=== PATIENT | male | born 2000 | race Caucasian/White ===

== ENCOUNTER 2018-09-06 16:43 | Emergency (ER) | payer BC ==
[2018-09-06] MEDS ORDERED: EPINEPHrine 1 MG/ML INJ IM ONE (16:44)
[2018-09-06] MEDS ORDERED: NS 1,000 ML IV ONE (16:44)
[2018-09-06] MEDS ORDERED: RANITIDINE 50 MG/2 ML VIAL IVP ONE (16:44)
[2018-09-06] MEDS ORDERED: methylPREDNISolone SOD SUCC 125 MG/2 ML VIAL IVP ONE (16:44)
--- NOTE | 2018-09-06 17:14 | EDPHY ---
H & P Time Seen by Provider: 09/06/18 16:45 HPI/ROS: CHIEF COMPLAINT: Shortness of breath, itchy rash HISTORY OF PRESENT ILLNESS: 17-year-old male presents with shortness of breath. Onset of shortness of breath, lip swelling and increasing rash 2 hr ago. Associated with anxiety and tingling in his mouth and hands. Diagnosed with pityriasis rosea yesterday. Had a herald patch 1 week ago, followed by a diffuse rash. No prior history of allergic reaction and no new foods REVIEW OF SYSTEMS: complete 10 point ROS reviewed and is negative except for the noted elements in the HPI Source: Patient - Physical Exam Exam: General Appearance: Alert, pleasant, anxious Eyes: Pupils equal and round, no conjunctival pallor or injection ENT, Mouth: Mucous membranes moist, no oral swelling Neck: Normal inspection, no stridor Respiratory: Lungs are clear to auscultation, no wheezing Cardiovascular: Regular rate and rhythm Gastrointestinal: Abdomen is soft and nontender Neurological: A&O, nonfocal, normal gait Skin: Warm and dry, diffuse maculopapular rash Extremities: No swelling Psychiatric: Anxious Allergies/Adverse Reactions: No Known Allergies Allergy (Unverified 09/06/18 18:21) Home Medications: Medication Instructions Recorded EPINEPHrine [Epipen 0.3 MG] 0.3 mg IM ONCE #2 syr 09/06/18 Pepcid 09/06/18 Prednisone 09/06/18 predniSONE 40 mg PO DAILY #6 tab 09/06/18 Medical Decision Making ED Course/Re-evaluation: This patient presents with shortness of breath, lip swelling and diffuse rash. Physical exam is unremarkable except for the rash and associated anxiety. Concern for anaphylaxis. Possibly secondary to a panic attack however. Epinephrine IM, Solu-Medrol, Benadryl and ranitidine IV given. 6:15 p.m.: Feels much better, rash has subsided. No oral swelling. Lungs are clear to auscultation. Likely allergic reaction. Discharge instructions given. Differential Diagnosis: Differential diagnosis includes though it is not limited to laryngeal edema, bronchospasm, hypotension, angioedema. - Data Points Medications Given: Discontinued Medications Diphenhydramine HCl (Benadryl Injection) 25 mg IVP EDNOW ONE Stop: 09/06/18 16:45 Last Admin: 09/06/18 16:57 Dose: 25 mg Epinephrine HCl (Epinephrine) 0.3 mg IM EDNOW ONE Stop: 09/06/18 16:45 Last Admin: 09/06/18 16:54 Dose: 0.3 mg Sodium Chloride (Ns) 1,000 mls @ 0 mls/hr IV ONCE ONE; Wide Open PRN Reason: Protocol Stop: 09/06/18 16:45 Last Admin: 09/06/18 16:54 Dose: 1,000 mls Methylprednisolone Sodium Succinate (Solu-Medrol) 125 mg IVP EDNOW ONE Stop: 09/06/18 16:45 Last Admin: 09/06/18 16:56 Dose: 125 mg Ranitidine HCl (Zantac) 50 mg IVP EDNOW ONE Stop: 09/06/18 16:45 Last Admin: 09/06/18 16:59 Dose: 50 mg Departure - Departure Disposition: Home, Routine, Self-Care Clinical Impression: Allergic reaction Qualifiers: Encounter type: initial encounter Qualified Code(s): T78.40XA - Allergy, unspecified, initial encounter Condition: Good Instructions: Anaphylaxis (ED) Additional Instructions: Take Claritin in the morning and Benadryl at night while the rash persists. Take prednisone as prescribed. Return for worsening symptoms or any concerns. Referrals: Vanesa Vital MD [[facility] [place] Primary Care Provider] - As per Instructions Prescriptions: EPINEPHrine [Epipen 0.3 MG] 0.3 mg IM ONCE #2 syr predniSONE 40 mg PO DAILY #6 tab
[2018-09-06 18:41] VITALS: BP 137/77
== END 2018-09-06 18:40 | disposition home or self-care (01) ==
DX: T78.40XA Allergy, unspecified, initial encounter (principal); L42 Pityriasis rosea; E86.9 Volume depletion, unspecified
CPT/HCPCS: 96374; J1200; J2780; J2930